=== PATIENT | male | born 1950 | race Caucasian/White ===

== ENCOUNTER 2018-12-29 23:28 | Emergency (ER) | payer MEDICARE, OTHER ==
[~2018-12-29] VITALS: Ht 165.1 cm; Wt 68.0 kg
[2018-12-29 23:45] LABS: BASO # 0.1 10*3/uL (0.0-0.1); BASO % 0.6 % (0.0-1.0); EOS # 0.2 10*3/uL (0.0-0.4); EOS % 2.7 % (1.0-4.0); HEMATOCRIT 39.3 % (42.0-52.0); HEMOGLOBIN 13.1 g/dl (14.0-18.0); LYMPH # 1.3 10*3/uL (1.3-4.4); LYMPH % 14.3 % (27.0-41.0); MEAN CELL VOLUME 95.9 fl (80.0-94.0); MEAN CORPUSCULAR HGB CONC 33.3 g/dl (33.0-37.0); MONO # 0.8 10*3/uL (0.1-1.0); MONO % 9.3 % (3.0-9.0); NEUT # 6.4 10*3/uL (2.3-7.9); NEUT % 71.6 % (47.0-73.0); PLATELET COUNT AUTOMATED 200 10*3/uL (130-400); RED CELL DISTRI WIDTH 13.9 % (0-14.5); WHITE BLOOD COUNT 8.9 10*3/uL (4.8-10.8)
[2018-12-29 23:54] LABS: ACT PARTIAL THROMBO TIME 21.1 SECONDS (20.0-32.1)
[2018-12-30] MEDS ORDERED: ASPIR 8181 MG PO (00:07)
[2018-12-30] MEDS ORDERED: LIPITOR80 MG PO (00:07)
[2018-12-30] MEDS ORDERED: BRILINTA90 M1 PO (00:08)
[2018-12-30] MEDS ORDERED: COREG6.25 MG PO (00:09)
[2018-12-30] MEDS ORDERED: LASIX20 MG PO (00:10)
[2018-12-30] MEDS ORDERED: AMARYL4 MG PO (00:10)
[2018-12-30] MEDS ORDERED: ENTRESTO 24 MG1 EACH PO (00:10)
[2018-12-30 00:12] LABS: ALBUMIN 3.8 gm/dl (3.1-4.5); POTASSIUM 4.2 mmol/L (3.5-5.1); TOTAL PROTEIN 7.1 gm/dL (6.4-8.2); TROPONIN I 0.042 ng/ml (<0.045)
[2018-12-30] MEDS ORDERED: SINGULAIR10 M1 PO (00:12)
[2018-12-30] MEDS ORDERED: LEVEMIR FL100 UNIT/1 SC (00:12)
[2018-12-30] MEDS ORDERED: Ranitidine Hyd150 MG PO (00:13)
[2018-12-30] MEDS ORDERED: RANEXA1000 M1 PO (00:14)
[2018-12-30] MEDS ORDERED: TRULICITY1.5 MG/0.5 SC (00:15)
[2018-12-30] MEDS ORDERED: VITAMIN B-12250 MCG PO (00:16)
[2018-12-30] MEDS ORDERED: VITAMIN D32000 UNI1 PO (00:17)
== END 2018-12-30 04:35 | disposition short-term general hospital (02) ==
LOC: ED 23:28
PROVIDERS: Emergency Medicine
DX: R55 Syncope and collapse (principal); R79.89 Other specified abnormal findings of blood chemistry; E11.22 Type 2 diabetes mellitus with diabetic chronic kidney disease; N18.9 Chronic kidney disease, unspecified; I50.9 Heart failure, unspecified; I25.10 Atherosclerotic heart disease of native coronary artery without angina pectoris; F17.200 Nicotine dependence, unspecified, uncomplicated; Z79.82 Long term (current) use of aspirin; Z79.899 Other long term (current) drug therapy; Z79.4 Long term (current) use of insulin; Z95.1 Presence of aortocoronary bypass graft